=== PATIENT | female | born 1985 | race Caucasian/White ===

== ENCOUNTER 2019-05-08 14:08 | Emergency (ER) | payer OTHER ==
[~2019-05-08] VITALS: Ht 154.9 cm; Wt 63.0 kg
--- NOTE | 2019-05-08 15:00 | NUR ---
Patient to ER bed 8 to gown for evaluation. Side rails up. Report given to Lashay HORNE.
--- NOTE | 2019-05-08 15:01 | NUR ---
Patient presented to ER C/O fever . Patient A&Ox4, ambulatory to ER, afebrile, skin pink and warm, pain 11/27 , denies N/V/D, 33 weeks . Patient states she has fever & body aches x3 days after receiving DTAP vaccination.
--- NOTE | 2019-05-08 15:05 | NUR ---
NIKOS Beltran at bedside examining patient.
[2019-05-08 15:46] VITALS: BP_SYST 110
--- NOTE | 2019-05-08 15:46 | NUR ---
Patient given written and verbal discharge instructions and verbalizes understanding. ER MD discussed with patient the results and treatment provided. Patient in stable condition. ID arm band removed. Rx of Keflex given. Patient educated on pain management and to follow up with PMD. Pain Scale 4/10 tolerable for patient. Opportunity for questions provided and answered. Medication side effect fact sheet provided.
== END 2019-05-08 15:46 | disposition home or self-care (01) ==
LOC: SED 14:08
DX: O23.43 Unspecified infection of urinary tract in pregnancy, third trimester (principal); Z3A.32 32 weeks gestation of pregnancy
CPT/HCPCS: 36415; 82962; 86710; 99283

== ENCOUNTER 2019-06-24 05:40 | Inpatient (IN) | payer OTHER ==
[~2019-06-24] VITALS: Ht 154.9 cm; Wt 65.3 kg
[2019-06-24] MEDS ORDERED: LR 1,000 ML IV ONE ×2 (05:47→19:42)
[2019-06-24] MEDS ORDERED: LR 1,000 ML IV SCH ×2 (05:47→21:23)
[2019-06-24] MEDS ORDERED: OXYTOCIN/0.9 % SODIUM CHLORIDE 1,000 ML IV SCH (05:47)
[2019-06-24 06:30] LABS: HEMATOCRIT 31.9 % (36-48); HEMOGLOBIN 10.2 g/dL (12.0-16.0); MEAN CORPUSCULAR HEMOGLOBIN 23 pg (27-31); MEAN CORPUSCULAR HGB CONC 32 % (32-36); MEAN CORPUSCULAR VOLUME 71 fL (79.0-98.0); PLATELET COUNT (AUTO) 206 K/uL (130-430); RED BLOOD CELL COUNT(AUTO) 4.49 MIL/uL (4.2-6.2); RED CELL DISTRIBUTION WIDTH 19.9 % (9.0-15.0); WHITE BLOOD COUNT (AUTO) 6.1 K/uL (4.8-10.8)
[2019-06-24 06:58] VITALS: BP_SYST 114
[2019-06-24 08:06] LABS: BASOPHILS % (MANUAL) 0 % (0-2); EOSINOPHILS % (MANUAL) 1 % (0-7); LYMPHOCYTES % (MANUAL) 35 % (20-46); MONOCYTES % (MANUAL) 3 % (0-11)
[2019-06-24] MEDS ORDERED: fentaNYL CITRATE/PF 100 MCG/2 ML AMP ONE (11:19)
[2019-06-24] MEDS ORDERED: ROPIVACAINE HCL/PF 0.2% 200 ML ONE (11:20)
[2019-06-24] MEDS ORDERED: ONDANSETRON HCL 4 MG/2 ML VIAL IVP PRN ×2 (11:30→21:00)
[2019-06-24] MEDS ORDERED: FENT2mCg/mL-ROPIVA0.2%/NS EPID 200 ML EP SCH (11:30)
[2019-06-24] MEDS ORDERED: CEFAZOLIN 2 GM IVPB PREMIX 50 ML IV ONE (19:45)
[2019-06-24] MEDS ORDERED: NALOXONE HCL 0.4 MG/ML AMP (NARCAN) IVP PRN (21:00)
[2019-06-24] MEDS ORDERED: DIPHENHYDRAMINE INJ 50 MG/ML VIAL IM PRN (21:00)
[2019-06-24] MEDS ORDERED: MORPHINE SULFATE 10MG/10ML PF AMP EP ONE (21:00)
[2019-06-24] MEDS ORDERED: LANOLIN 7 GM OINT. TP PRN (21:30)
[2019-06-24] MEDS ORDERED: RHO(D) IMMUNE GLOBULIN/MALTOSE 1500 UNITS/1.3 ML (WINHRO) IM PRN (21:30)
[2019-06-24] MEDS ORDERED: DIPH-TET-PERTUS Vaccine 0.5 ML VIAL (ADACEL) I.M. PRN (21:30)
[2019-06-24] MEDS ORDERED: BISACODYL 10 MG/SUPPOSITORY RC PRN (21:30)
[2019-06-24] MEDS ORDERED: MEASLES,MUMPS&RUBELLA VACC/PF 12500 UNIT/0.5 ML VIAL SUBQ PRN (21:30)
[2019-06-24] MEDS ORDERED: TEMAZEPAM 15 MG CAPSULE PO PRN (21:30)
[2019-06-24] MEDS ORDERED: HYDROcodone/ACETAMIN 5-325 MG TAB (NORCO/ VICODIN) PO PRN (21:30)
[2019-06-24] MEDS ORDERED: ANUSOL 1 EA SUPP.RECT (PREPARATION H) RC PRN (21:30)
[2019-06-24] MEDS ORDERED: OXYCODONE/ACETAMINOPHEN 5-325 TABLET PO PRN (21:30)
[2019-06-24] MEDS ORDERED: HYDROmorphone 1 MG INJ. 1 MG/ML AMPUL ONE (21:52)
[2019-06-24] MEDS ORDERED: HYDROmorphone 1 MG INJ. 1 MG/ML AMPUL IVP ONE (22:00)
[2019-06-24 22:19] VITALS: BP_SYST 142
[2019-06-25] MEDS: CEFAZOLIN 1 GM IVPB PREMIX 50 ML IV SCH ×3 (00:01→11:57)
[2019-06-25] MEDS: SIMETHICONE 80 MG TAB.CHEW PO PRN ×3 (05:20→17:57)
[2019-06-25] MEDS: OXYTOCIN/0.9 % SODIUM CHLORIDE 1,000 ML IV SCH ×2 (05:21→13:42)
[2019-06-25] MEDS: KETOROLAC TROMETHAMINE 30 MG VIAL IVP SCH ×2 (05:28→11:57)
[2019-06-25] MEDS ORDERED: HYDROmorphone 1 MG INJ. 1 MG/ML AMPUL IVP PRN (06:15)
[2019-06-25 07:20] LABS: BASOPHILS % (AUTO) 0.3 % (0.0-2.0); EOSINOPHILS % (AUTO) 0.3 % (0.0-4.0); HEMATOCRIT 25.4 % (36-48); HEMOGLOBIN 8.1 g/dL (12.0-16.0); LYMPHOCYTES # (AUTO) 1.2 K/uL (1.0-5.5); LYMPHOCYTES % (AUTO) 11.3 % (20.5-51.5); MEAN CORPUSCULAR HEMOGLOBIN 23 pg (27-31); MEAN CORPUSCULAR HGB CONC 32 % (32-36); MEAN CORPUSCULAR VOLUME 71 fL (79.0-98.0); MONOCYTES # (AUTO) 0.5 K/uL (0.0-1.0); MONOCYTES % (AUTO) 4.8 % (1.7-9.3); NEUTROPHILS # (AUTO) 8.6 K/uL (1.8-7.7); NEUTROPHILS % (AUTO) 83.3 % (40.0-70.0); PLATELET COUNT (AUTO) 137 K/uL (130-430); RED BLOOD CELL COUNT(AUTO) 3.57 MIL/uL (4.2-6.2); RED CELL DISTRIBUTION WIDTH 20.1 % (9.0-15.0); WHITE BLOOD COUNT (AUTO) 10.3 K/uL (4.8-10.8)
[2019-06-25] MEDS: OXYCODONE/ACETAMINOPHEN *10*mg/325 mg TABLET PO PRN (16:19)
[2019-06-25] MEDS: SENNOSIDES/DOCUSATE SODIUM 1 TAB TABLET(SENOKOT-S) PO PRN (17:57)
[2019-06-25] MEDS: DOCUSATE SODIUM 100 MG CAPSULE PO PRN (17:57)
[2019-06-25] MEDS: IBUPROFEN 600 MG TABLET PO SCH (17:58)
[2019-06-26] MEDS: IBUPROFEN 600 MG TABLET PO SCH ×5 (05:46→23:25)
[2019-06-26] MEDS: DOCUSATE SODIUM 100 MG CAPSULE PO PRN ×2 (12:03→23:26)
[2019-06-26] MEDS: SENNOSIDES/DOCUSATE SODIUM 1 TAB TABLET(SENOKOT-S) PO PRN (17:45)
[2019-06-26] MEDS: OXYCODONE/ACETAMINOPHEN *10*mg/325 mg TABLET PO PRN ×2 (23:24)
[2019-06-26] MEDS: SIMETHICONE 80 MG TAB.CHEW PO PRN (23:26)
[2019-06-27] MEDS: IBUPROFEN 600 MG TABLET PO SCH ×3 (05:47→17:59)
[2019-06-27] MEDS: DOCUSATE SODIUM 100 MG CAPSULE PO PRN ×2 (05:48→12:24)
[2019-06-27] MEDS: OXYCODONE/ACETAMINOPHEN *10*mg/325 mg TABLET PO PRN (20:15)
== END 2019-06-27 20:20 | disposition home or self-care (01) | DRG 786 ==
LOC: SPU 05:40
PROVIDERS: ADMIT Specialist; ATTEND Specialist
PROC: 10D00Z1 Extraction of Products of Conception, Low, Open Approach (ICD-10-PCS; principal; 2019-06-26)
DX: O62.2 Other uterine inertia (principal); O24.12 Pre-existing type 2 diabetes mellitus, in childbirth; O69.81X0 Labor and delivery complicated by cord around neck, without compression, not applicable or unspecified; N73.6 Female pelvic peritoneal adhesions (postinfective); O32.4XX0 Maternal care for high head at term, not applicable or unspecified; O99.89 Other specified diseases and conditions complicating pregnancy, childbirth and the puerperium; O69.2XX0 Labor and delivery complicated by other cord entanglement, with compression, not applicable or unspecified; O33.9 Maternal care for disproportion, unspecified; Z37.0 Single live birth; Z3A.39 39 weeks gestation of pregnancy
CPT/HCPCS: 36415; 82947-TC; 82962; 85007; 85025; 85027; 86592; 86886; 86900; 86901; J0690; J1170; J1885; J2590; J3010; J7120